=== PATIENT | male | born 1970 | race Caucasian/White ===

== ENCOUNTER 2017-03-19 16:19 | Emergency (ER) | payer OTHER ==
[2017-03-19 16:28] VITALS: BP 139/98; BMI 30.6
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
[2017-03-19] MEDS ORDERED: ADACEL TDaP IM ONE ×2 (17:01→17:03)
== END 2017-03-19 17:40 | disposition home or self-care (01) ==
LOC: ER 16:32
PROC: 09QK0ZZ Repair Nasal Mucosa and Soft Tissue, Open Approach (ICD-10-PCS; principal; 2017-03-19)
DX: S01.21XA Laceration without foreign body of nose, initial encounter (principal); S09.93XA Unspecified injury of face, initial encounter; W45.8XXA Other foreign body or object entering through skin, initial encounter; Y92.9 Unspecified place or not applicable
CPT/HCPCS: 12011; 90471; 99282

== ENCOUNTER 2017-04-05 17:55 | Emergency (ER) | payer OTHER ==
[2017-04-05 18:04] VITALS: BMI 31.4
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
[2017-04-05] MEDS ORDERED: NORFLEX INJ ONE (18:34)
[2017-04-05] MEDS ORDERED: TORADOL 60 MG VIAL ONE (18:34)
[2017-04-05] MEDS: TORADOL 60 MG VIAL IM ONE (18:39)
[2017-04-05] MEDS: NORFLEX INJ IM ONE (18:39)
--- NOTE | 2017-04-05 19:37 | CT ---
Indication: Fall and pain. Exam: CT scan lumbar spine Technique: Axial spiral images were obtained from the lower thoracic region through the sacrum withou t contrast and reconstructed in the sagittal and coronal planes. Findings: The lumbar vertebra are well aligned. There is moderate disc space narrowing throughout wit h prominent osteophytes throughout. No fracture or subluxation is seen. There are prominent osteophyt es throughout. There are moderate sclerotic changes of the facets throughout . There are moderate antonia tral disc bulges at L3-4, L4-5 , and L5-S1 . There are moderate hypertrophic changes of facets throug hout causing diffuse mild spinal stenosis. The paravertebral soft tissues are normal. Impression: Moderate degenerate disc changes throughout and moderate osteoarthritic changes of the facets through out with no acute abnormality seen Multiple moderate disc bulges throughout the lower lumbar spine. Reported By:
--- NOTE | 2017-04-05 19:39 | RAD ---
Left hip two views Indication: Pain after fall. Findings: There is no cortical lucency or malalignment. Joint spaces are normal. Impression: No acute left hip fracture. Reported By:
--- NOTE | 2017-04-05 19:42 | CT ---
CT pelvis without contrast Indication: Pain after fall Technique: Helical images through the pelvis without contrast. Coronal and sagittal reformats are pro vided. Findings: Limited images through lower lumbar spine shows facet arthropathy and disc degenerative manny nge. SI joint DJD is noted. Mild symphysis pubis DJD is seen. The hip joints are intact without corti gagan lucency or malalignment. No large effusion seen. Deep soft tissues of the pelvis show no acute abnormality. Few noninflamed sigmoid diverticula noted. Dystrophic calcifications seen in the rectus femorals muscle broad from prior tear. Ulnar injury of the sacrococcygeal junction suspected. Gas is seen in left gluteus ananda muscle belly, either from injection or laceration. No large laceration seen however. Impression: 1. No acute fracture. 2. Old injury of the sacrococcygeal junction. 3. Mild degenerative change. 4. Heterotopic calcification in the left rectus femoris muscle belly from old injury. 5. Gas in the left gluteus muscle belly. Correlate clinically for history of injection versus lacerat ion not visualized on CT due to field of view. Reported By:
[2017-04-05 20:10] VITALS: BP 140/91
== END 2017-04-05 20:07 | disposition home or self-care (01) ==
LOC: ER 18:10
DX: S39.012A Strain of muscle, fascia and tendon of lower back, initial encounter (principal); S73.102A Unspecified sprain of left hip, initial encounter; S33.5XXA Sprain of ligaments of lumbar spine, initial encounter; M25.551 Pain in right hip; W17.89XA Other fall from one level to another, initial encounter; Y92.69 Other specified industrial and construction area as the place of occurrence of the external cause
CPT/HCPCS: 72131; 72192; 73501; 96372; 99283; J1885; J2360

== ENCOUNTER → 2017-04-26 | Outpatient (CLI) | payer OTHER ==
[2017-04-05 20:10] VITALS: BP 140/91
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
== END | disposition home or self-care (01) | DRG 552 ==
LOC: RAD 10:22
PROVIDERS: ATTEND Obstetrics & Gynecology Obstetrics
DX: M54.16 Radiculopathy, lumbar region (principal); M47.896 Other spondylosis, lumbar region; M51.26 Other intervertebral disc displacement, lumbar region; M48.061 Spinal stenosis, lumbar region without neurogenic claudication
CPT/HCPCS: 72148

== ENCOUNTER → 2017-05-12 | Outpatient (CLI) | payer OTHER ==
[2017-05-12 10:54] LABS: BASOPHILS # (AUTO) 0.1 X10^3/uL (0.0-0.1); BASOPHILS % (AUTO) 1.3 % (0.2-1.0); EOSINOPHILS # (AUTO) 0.2 x10^3/uL (0.0-0.2); EOSINOPHILS % (AUTO) 3.1 % (0.9-2.9); HEMATOCRIT 51.7 % (42.0-54.0); HEMOGLOBIN 18.1 g/dL (13.5-18.0); LYMPHOCYTES # (AUTO) 0.7 X10^3/uL (1.3-2.9); LYMPHOCYTES % (AUTO) 13.3 % (21.0-51.0); MEAN CORPUSCULAR HEMOGLOBIN 30.8 pg (27.0-34.0); MEAN CORPUSCULAR HGB CONC 35.1 g/dL (33.0-35.0); MEAN CORPUSCULAR VOLUME 87.7 fL (80.0-100.0); MEAN PLATELET VOLUME 8.1 fL (7.4-11.0); MONOCYTES # (AUTO) 0.6 x10^3/uL (0.3-0.8); MONOCYTES % (AUTO) 10.4 % (0.0-13.0); NEUTROPHILS % (AUTO) 71.9 % (42.0-75.0); PLATELET COUNT 228 X10^3/uL (150.0-450.0); RED BLOOD COUNT 5.89 X10^6/uL (4.7-6.0); RED CELL DISTRIBUTION WIDTH 14.2 % (11.6-16.5); WHITE BLOOD COUNT 5.6 X10^3/uL (3.6-10.0)
[2017-05-12 11:24] LABS: BLOOD UREA NITROGEN 18 mg/dL (7-18); CARBON DIOXIDE 24.3 mmol/L (21-32); CHLORIDE 104 mmol/L (98-107); COR NA(FOR HYPERGLY) 140 mmol/L (136-145); SODIUM 139 mmol/L (136-145); eGFR BLACK RACES > 60 (>60); eGFR NON BLACK RACES > 60 (>60)
== END ==
LOC: LAB 10:38
PROVIDERS: ATTEND Neurological Surgery
DX: Z01.818 Encounter for other preprocedural examination (principal); M51.26 Other intervertebral disc displacement, lumbar region
CPT/HCPCS: 36415; 80048; 85025; 85610; 85730

== ENCOUNTER 2017-09-04 10:39 | Emergency (ER) | payer OTHER ==
[2017-09-04 10:54] VITALS: BMI 30.8
[2017-09-04] MEDS ORDERED: NS 1000 ML 1,000 ML IV SCH (12:00)
[2017-09-04] MEDS ORDERED: NS 1000 ML 1,000 ML ONE (12:01)
--- NOTE | 2017-09-04 12:03 | DR.GENAD ---
HPI - PCP Primary Care Physician: Dr. Dewey - Complaint/Symptoms Chief Complaint Doctors Comments: Patient is complaining of feeling weak with his muscles feeling sore like they are going to melt away for the past 2-3 days getting worst today. States he has been walking three miles daily for a few weeks since having back surgery 13 May 2017 but today he do not feel like picking his feet up. States he has had a similar episode few years ago and they told him his cardio- level was elevated to 1400 and should be around 300. States they gave him fluids and kept him for about 4 days. He denies chest pain , SOB, cold or cough. He denies any recent trauma. Chief Complaint:: Pt states "I've been feeling sort of funny for a few days but this morning I was walking this morning started feeling dizzy and seeing spots. Feels like I'm very weak and anxious." Stated forearms, calve muscles and feet are very sore. - Nurses notes reviewed Nurses Notes Review: Yes - Source History Provided: Patient - Mode of Arrival Mode of Arrival: Ambulatory - Timing Onset of Chief Complaint: 09/04/17 Came on: Gradually - Duration Duration: Constant How lon Duration: Days - Location Location: arms, legs and feet - Severity Severity: Moderate - Modifying Factors Worsens:: exertion Improves:: nothing PMH - PMH Past Medical History: Yes Past Medical History Comment: Rheumatoid Arthritis Past Surgical History: Yes Surgical History: Ortho Surgery Past Surgical History Comment: Back surgery, Right Wrist surgery - Family History History of Family Medical Conditions: Yes Family Medical History: Diabetes Mellitus, Cancer, Coronary Artery Disease, Heart Failure, Hypertension - Social History Does patient currently use any type of tobacco product: No Have you used tobacco products in the last 12 months: No Type of Tobacco Use: None Does any household member use tobacco: No Alcohol Use: None Do you use any recreational Drugs:: No Lives With: Family Lives Where: Home - infectious screening In the last 2 months have you had wt loss of >10#?: NO Have you had fever, night sweats or hemotysis?: No Have you traveled outside the country in the last 6 months?: No Isolation: Standard ROS - Review of Systems Constitutional: No Symptoms Reported, Malaise, Weakness, Fatigue. negative: See HPI, Chills, Diaphoresis, Fever, Irritable, Loss of Appetite, Other Eyes: No Symptoms Reported ENTM: No Symptoms Reported. negative: See HPI, Ear Pain, Ear Discharge, Pulling on Ears, Hearing Loss, Nose Pain, Nose Discharge, Epistaxis, Nose Congestion, Mouth Pain, Mouth Swelling, Loose Teeth, Drooling, Throat Pain, Throat Swelling, Ear Foreign Body Respiratoy: No Symptoms Reported. negative: See HPI, Productive Cough, Non- Productive Cough, Moist Cough, Dry Cough, Hacking Cough, Barking Cough, Brassy Cough, Orthopnea, Short of Breath, Stridor, Wheezing, Hemoptysis, Other Cardiovascular: No Symptoms Reported. negative: See HPI, Chest Pain, Edema, Palpitations, Syncope, Cyanosis, Skin Mottling, Other Gastrointestinal/Abdominal: No Symptoms Reported. negative: See HPI, Abdominal Pain, Constipation, Diarrhea, Nausea, Vomiting, Food Intolerance, Other Genitourinary: No Symptoms Reported. negative: See HPI, Discharge, Dysuria, Frequency, Hematuria, Pain, Bleeding, Other Neurological: No Symptoms Reported, Emotional Problems, Weakness, Problems Walking. negative: See HPI, Anxiety, Depressed, Headache, Numbness, Paresthesia , Pre-existing Deficit, Seizure, Tingling, Tremors, Dizziness, Speech Problem, Other Musculoskeletal: No Symptoms Reported, Arm, Leg, Foot (muscle weakness) Integumentary: No Symptoms Reported. negative: See HPI, Change in Color, Change in Hair/Nails, Dryness, Lesions, Lumps, Rash, Itching, Wound, Bruises, Juandice, Other Hematologic/Lymphatic: No Symptoms Reported Endocrine: No Symptoms Reported. negative: See HPI, Excessive Sweating, Flushing, Intolerance to Cold, Intolerance to Heat, Increased Hunger, Increased Thirst, Increased Urine, Unexplained Weight Gain, Unexplained Weight Loss, Failure to Thrive, Decreased Appetite, Other Psychiatric: No Symptoms Reported. negative: See HPI, Anxiety, Depression, Hallucinations, Excessive crying, Suicidal, Other PE - Vital Signs Vitals: Temperature 98.2 F Pulse Rate [Standing] 105 Pulse Rate [Sitting] 74 Pulse Rate [Lying] 74 Pulse Rate 96 Respiratory Rate 18 Blood Pressure [Left Arm] 140/91 Blood Pressure [Right Arm] 119/67 Blood Pressure [Standing] 133/94 Blood Pressure [Sitting] 158/108 Blood Pressure [Lying] 154/89 Blood Pressure 130/79 O2 Sat by Pulse Oximetry 98 - General Limitations: No Limitations General Appearance: Alert, In No Apparent Distress - Head Head Exam: Normal Inspection, Atraumatic, Normocephalic - Eyes Eye exam: Normal Appearance, PERRL, EOMI. negative: Scleral Icterus, Conjunctival Injection, Nystagmus, Miosis, Mydrasis, Periorbital Swelling, Periorbital Tenderness, Other - ENT ENT Exam: Normal Exam, Normal Oropharynx, Normal External Ear Exam, Mucous Membranes Moist, TM's Normal Bilaterally External Ear Exam: Normal External Inspection TM/Canal Exam: Bilateral Normal Nose Exam: Normal Nose Exam Mouth Exam: Normal Inspection Throat Exam: Normal Inspection. negative: Tonsillar Erythema, Tonsillomegaly, Tonsillar Exudate, R Peritonsillar Mass, L Peritonsillar Mass, Muffled Voice, Other - Neck Neck Exam: Normal Inspection, Full ROM, Trachea Midline. negative: Tenderness, Meningismus, Lymphadenopathy, Thyromegaly, Other - Chest Chest Inspection: Normal Inspection, Symmetric Chest Wall Rise. negative: Tenderness, Rash, Abscess, Other - Respiratory Respiratory Exam: Normal Lung Sounds Bilat. negative: Accessory Muscle Use, Chest Wall Tenderness, Prolonged Expiratory Phase, Respiratory Distress, Stridor , Other Respiratory Exam: Bilateral Clear to Auscultation - Cardiovascular Cardiovascular Exam: Regular Rate, Normal Rhythm, Normal Heart Sounds, Systolic Murmur - Abdominal Exam Abdominal Exam: Normal Inspection, Normal Bowel Sounds, Soft. negative: Distention, Tenderness, Guarding, Rebound, Rigidity, Dimnished Bowel Sounds, Hyperactive Bowel Sounds, Hypoactive Bowel Sounds, Organomegaly, Trauma, Incision, Ascites, Mass, Bruit, Pulsatile Mass, Hernia, Other Abdominal Tenderness: negative: RUQ, RLQ, LUQ, LLQ, Epigastrium, Suprapubic, Diffuse, Mild, Moderate, Severe, Other - Extremities Extremities Exam: Normal Inspection, Full ROM, Normal Capillary Refill. negative: Tenderness, Edema, Joint Swelling, Calf Tenderness, Other - Back Back Exam: Normal Inspection, Full ROM - Neurologic Neurological Exam: Alert, Oriented X3, CN II-XII Intact, Reflexes Normal. negative: Normal Gait (gait not tested) - Psychiatric Psychiatric Exam: Normal Affect, Normal Mood, Anxious. negative: Depressed, Agitated, Flat Affect, Manic, Homicidal Ideation, Suicidal Ideation, Other - Skin Skin Exam: Warm, Dry, Intact, Normal Color. negative: Rash, Cyanosis, Diaphoresis, Erythema, Pallor, Mottled, Other ROR - Labs Reviewed Laboratory Results Reviewed?: Yes (All labs and x-ray results reviewed and discussed with patient) Result Diagrams: 09/04/17 12:07 09/04/17 12:07 Laboratory: WBC 5.1 X10^3/uL (3.6-10.0) 09/04/17 12:07 RBC 5.14 X10^6/uL (4.7-6.0) 09/04/17 12:07 Hgb 15.8 g/dL (13.5-18.0) 09/04/17 12:07 Hct 44.7 % (42.0-54.0) 09/04/17 12:07 MCV 86.8 fL (80.0-100.0) 09/04/17 12:07 MCH 30.7 pg (27.0-34.0) 09/04/17 12:07 MCHC 35.4 g/dL (33.0-35.0) H 09/04/17 12:07 RDW 14.5 % (11.6-16.5) 09/04/17 12:07 Plt Count 203 X10^3/uL (150.0-450.0) 09/04/17 12:07 MPV 8.2 fL (7.4-11.0) 09/04/17 12:07 Neut % (Auto) 72.1 % (42.0-75.0) 09/04/17 12:07 Lymph % (Auto) 13.0 % (21.0-51.0) L 09/04/17 12:07 [place] % (Auto) 11.2 % (0.0-13.0) 09/04/17 12:07 Eos % (Auto) 2.7 % (0.9-2.9) 09/04/17 12:07 Baso % (Auto) 1.0 % (0.2-1.0) 09/04/17 12:07 Neut # (Auto) 3.7 x10^3/uL (2.2-4.8) 09/04/17 12:07 Lymph # (Auto) 0.7 X10^3/uL (1.3-2.9) L 09/04/17 12:07 [place] # (Auto) 0.6 x10^3/uL (0.3-0.8) 09/04/17 12:07 Eos # (Auto) 0.1 x10^3/uL (0.0-0.2) 09/04/17 12:07 Baso # (Auto) 0.1 X10^3/uL (0.0-0.1) 09/04/17 12:07 Absolute Nucleated RBC 0.0 /100WBC 09/04/17 12:07 INR Target Range - 09/04/17 12:07 INR 1.05 (0.8-1.3) 09/04/17 12:07 APTT 25.2 SECONDS (22.9-36.5) 09/04/17 12:07 PTT Comment - 09/04/17 12:07 Sodium 141 mmol/L (136-145) 09/04/17 12:07 Corrected Sodium 142 mmol/L (136-145) 09/04/17 12:07 Potassium 3.8 mmol/L (3.5-5.1) 09/04/17 12:07 Chloride 107 mmol/L (98-107) 09/04/17 12:07 Carbon Dioxide 25.3 mmol/L (21-32) 09/04/17 12:07 BUN 19 mg/dL (7-18) H 09/04/17 12:07 Creatinine 1.28 mg/dL (0.70-1.30) 09/04/17 12:07 Est GFR (MDRD) Af Amer > 60 (>60) 09/04/17 12:07 Est GFR (MDRD) Non-Af > 60 (>60) 09/04/17 12:07 Glucose 130 mg/dL (65-99) H 09/04/17 12:07 Calcium 8.5 mg/dL (8.5-10.1) 09/04/17 12:07 Corrected Calcium TNP 09/04/17 12:07 Magnesium 2.1 mg/dL (1.7-2.9) 09/04/17 12:07 Total Bilirubin 0.60 mg/dL (0.2-1.0) 09/04/17 12:07 AST 26 Units/L (15-37) 09/04/17 12:07 ALT 42 Units/L (12-78) 09/04/17 12:07 Alkaline Phosphatase 90 Units/L (46-116) 09/04/17 12:07 Creatine Kinase 221 Units/L (39-308) 09/04/17 12:07 CK-MB (CK-2) < 1.0 ng/mL (0-4.0) 09/04/17 12:07 CK/CKMB % Calc 0.5 % (<4) 09/04/17 12:07 Troponin I < 0.02 ng/mL (0-1.5) 09/04/17 12:07 Total Protein 7.3 g/dL (6.4-8.2) 09/04/17 12:07 Albumin 3.8 g/dL (3.4-5.0) 09/04/17 12:07 Globulin 3.5 g/dL (2.5-4.5) 09/04/17 12:07 Albumin/Globulin Ratio 1.1 Ratio (1.1-2.1) 09/04/17 12:07 - XRAY XRAY Interpreted by: Radiologist (CXR: No acute findings or changes noted) - EKG Rate: 62 [place]: Normal Rhythm: NSR Block: None Hypertrophy: None ST: Normal, Nonsp - Diagnosis Discharge Problem: Dehydration, moderate, Hyperglycemia, Borderline hypertension - Discharge Plan Disposition: 01 HOME, SELF-CARE Condition: Stable - Follow ups/Referrals Follow ups/Referrals: KIRIT DEWEY [Primary Care Provider] - 3 days - Instructions Instructions: Hyperglycemia, [id number], Preventing Hypertension, Dehydration , Adult
--- NOTE | 2017-09-04 12:07 | RAD ---
Examination: AP chest History: Chest pain Comparison 10/13/2014 Findings: Continued normal transverse heart diameter with clear lungs and pleural spaces. Impression: No change; no acute findings. Reported By:
[2017-09-04 12:20] LABS: BASOPHILS # (AUTO) 0.1 X10^3/uL (0.0-0.1); EOSINOPHILS # (AUTO) 0.1 x10^3/uL (0.0-0.2); EOSINOPHILS % (AUTO) 2.7 % (0.9-2.9); HEMATOCRIT 44.7 % (42.0-54.0); HEMOGLOBIN 15.8 g/dL (13.5-18.0); LYMPHOCYTES # (AUTO) 0.7 X10^3/uL (1.3-2.9); MEAN CORPUSCULAR HEMOGLOBIN 30.7 pg (27.0-34.0); MEAN CORPUSCULAR HGB CONC 35.4 g/dL (33.0-35.0); MEAN CORPUSCULAR VOLUME 86.8 fL (80.0-100.0); MEAN PLATELET VOLUME 8.2 fL (7.4-11.0); MONOCYTES # (AUTO) 0.6 x10^3/uL (0.3-0.8); MONOCYTES % (AUTO) 11.2 % (0.0-13.0); NEUTROPHILS # (AUTO) 3.7 x10^3/uL (2.2-4.8); NEUTROPHILS % (AUTO) 72.1 % (42.0-75.0); PLATELET COUNT 203 X10^3/uL (150.0-450.0); RED BLOOD COUNT 5.14 X10^6/uL (4.7-6.0); RED CELL DISTRIBUTION WIDTH 14.5 % (11.6-16.5); WHITE BLOOD COUNT 5.1 X10^3/uL (3.6-10.0)
[2017-09-04 13:00] LABS: BLOOD UREA NITROGEN 19 mg/dL (7-18); CALCIUM 8.5 mg/dL (8.5-10.1); CARBON DIOXIDE 25.3 mmol/L (21-32); CHLORIDE 107 mmol/L (98-107); COR NA(FOR HYPERGLY) 142 mmol/L (136-145); CREATININE 1.28 mg/dL (0.70-1.30); SODIUM 141 mmol/L (136-145); TROPONIN I < 0.02 ng/mL (0-1.5); eGFR BLACK RACES > 60 (>60); eGFR NON BLACK RACES > 60 (>60)
[2017-09-04 13:05] LABS: ALANINE AMINOTRANSFERASE 42 Units/L (12-78); ALBUMIN 3.8 g/dL (3.4-5.0); ALKALINE PHOSPHATASE 90 Units/L (46-116); ASPARTATE AMINO TRANSFERASE 26 Units/L (15-37); CKMB % 0.5 % (<4); CREATINE KINASE 221 Units/L (39-308); CREATINE KINASE MB < 1.0 ng/mL (0-4.0); MAGNESIUM 2.1 mg/dL (1.7-2.9); TOTAL PROTEIN 7.3 g/dL (6.4-8.2)
[2017-09-04 13:50] VITALS: BP 130/82
== END 2017-09-04 14:19 | disposition home or self-care (01) ==
LOC: ER 10:50
DX: E86.0 Dehydration (principal); R73.9 Hyperglycemia, unspecified
CPT/HCPCS: 36415; 71045; 80053; 82550; 82553; 83735; 84484; 85025; 85610; 85730; 93005; 93010; 96365; 99282; 99283; A4222

== ENCOUNTER 2017-09-13 17:19 | Emergency (ER) | payer OTHER ==
[2017-09-13 17:24] VITALS: BMI 30.2
[2017-09-13 18:57] LABS: BILIRUBIN,URINE NEGATIVE (NEGATIVE); BLOOD/HEMOGLOBIN,URINE 4+ (NEGATIVE); GLUCOSE, URINE NEGATIVE (NEGATIVE); KETONES,URINE 1+ (NEGATIVE); LEUKOCYTE ESTERASE ,URINE 1+ (NEGATIVE); NITRITES,URINE NEGATIVE (NEGATIVE); PROTEIN,URINE 2+ (NEGATIVE); UROBILINOGEN,URINE 2+ (NORMAL)
[2017-09-13] MEDS ORDERED: NS 1000 ML 1,000 ML ONE (19:00)
[2017-09-13] MEDS ORDERED: NS 1000 ML 1,000 ML IV ONE (19:09)
--- NOTE | 2017-09-13 19:11 | CT ---
HISTORY: Left flank pain Study: CT abdomen and pelvis without contrast Comparison: None Technique: Multiple axial images of the abdomen and pelvis were obtained without IV contrast. Dose reduction t echniques including Automated Exposure Control (AEC) and adjustment of mA and kV were utilized. Findings: Please note evaluation is limited without use of IV contrast. There is a 7 mm right middle lobe pulmonary nodule. The lung bases are otherwise clear. The unenhanc ed spleen, liver, pancreas, and adrenal glands are unremarkable. There is a punctate density seen kimberly r the gallbladder neck, possibly a stone or artifact. There is a 1.7 cm right renal cyst with periphe ral calcification that could represent a wall calcification versus layering milk of calcium. No renal calculi identified but there is prominence of the left ureter and mild distal periureteral stranding . No definite stones are identified the findings could reflect a recently passed stone. No free intraperitoneal air. No evidence of intestinal obstruction or inflammation. The appendix is n ormal. No free fluid is seen. The soft tissues and osseous structures are unremarkable. Limited evaluation of vascular structures d ue to lack of contrast. No pathologically enlarged lymph nodes are identified. The urinary bladder is not well distended. IMPRESSION: 1. Mild prominence of the left ureter with distal periureteral stranding. No definite stones are seen within the ureter or urinary bladder. Correlate clinically for possible recently passed stone. 2. Right renal cyst as described, possibly a complex cyst with calcified wall versus layering milk of calcium. Nonemergent renal protocol CT with and without contrast could be performed for additional e valuation clinically indicated. Reported By:
[2017-09-13 19:19] LABS: APPEARANCE,URINE SLIGHTLY HAZY (CLEAR); COLOR,URINE AMBER (YELLOW)
[2017-09-13 19:20] LABS: AMORPHOUS SEDIMENT,UR 1+ /HPF (NEGATIVE); BACTERIA,URINE TRACE /HPF (NEGATIVE); CYSTINE CRYSTALS,URINE MODERATE /HPF (NEGATIVE); MUCUS,URINE MANY /HPF (NEGATIVE); SQUAMOUS EPITHELIAL CELL,UR FEW /HPF (NEGATIVE)
--- NOTE | 2017-09-13 19:50 | DR.UPM ---
HPI - Time Seen Time seen: 17:35 - PCP Primary Care Physician: DEWEY - Complaint Chief Complaint Doctors Comments: Patient presents with complaint of urinary urgency for one day. He reports a history of renal stones. Today he admits to voiding just a little. Chief Complaint:: PT. C/O URINARY RETENTION SINCE LAST NIGHT. PT. ALSO C/O LEFT FLANK PAIN. PT. WENT TO DR. [employer] AND WAS ABLE TO VOID A LITTLE AND THEY TOLD HIM HE HAD BLOOD IN HIS URINE AND GAVE HIM A TORADOL SHOT. - Source History Provided: Patient - Mode of Arrival Mode of Arrival: Ambulatory - Timing Onset of Chief Complaint: 09/12/17 PMH - PMH Past Medical History: Yes Past Medical History: Kidney Stones Past Surgical History: Yes Surgical History: Ortho Surgery - Family History History of Family Medical Conditions: Yes Family Medical History: Diabetes Mellitus, Cancer, Coronary Artery Disease, Heart Failure, Hypertension - Social History Does patient currently use any type of tobacco product: No Have you used tobacco products in the last 12 months: No Type of Tobacco Use: None Does any household member use tobacco: No Alcohol Use: None Do you use any recreational Drugs:: No Lives With: Family Lives Where: Home - infectious screening In the last 2 months have you had wt loss of >10#?: NO Have you had fever, night sweats or hemotysis?: No Have you traveled outside the country in the last 6 months?: No Isolation: Standard ROS - Review of Systems Eyes: No Symptoms Reported ENTM: No Symptoms Reported Respiratoy: No Symptoms Reported Cardiovascular: No Symptoms Reported Gastrointestinal/Abdominal: No Symptoms Reported Genitourinary: No Symptoms Reported Neurological: No Symptoms Reported Musculoskeletal: No Symptoms Reported Integumentary: No Symptoms Reported Hematologic/Lymphatic: No Symptoms Reported Endocrine: No Symptoms Reported Psychiatric: No Symptoms Reported All Other Systems: Reviewed and Negative PE - Vital Signs Vitals: Temperature 98.3 F Pulse Rate 83 Respiratory Rate 17 Blood Pressure [Left Arm] 140/91 Blood Pressure [Right Arm] 130/82 Blood Pressure [Standing] 133/94 Blood Pressure [Sitting] 158/108 Blood Pressure [Lying] 154/89 Blood Pressure 134/85 O2 Sat by Pulse Oximetry 99 - General Limitations: No Limitations General Appearance: Alert, In No Apparent Distress - Head Head Exam: Normal Inspection, Atraumatic - Eyes Eye exam: Normal Appearance, PERRL, EOMI - ENT ENT Exam: Normal Exam - Neck Neck Exam: Normal Inspection, Full ROM - Chest Chest Inspection: Normal Inspection - Respiratory Respiratory Exam: Normal Lung Sounds Bilat Respiratory Exam: Bilateral Clear to Auscultation - Cardiovascular Cardiovascular Exam: Regular Rate, Normal Rhythm - Abdominal Exam Abdominal Exam: Normal Inspection, Normal Bowel Sounds Abdominal Tenderness: negative: RUQ, RLQ, LUQ, LLQ, Epigastrium, Suprapubic, Diffuse, Mild, Moderate, Severe, Other - Rectal Rectal Exam: Deferred - Genitourinary Exam: Male: Deferred Scrotal Exam: Normal: Bilateral - Extremities Extremities Exam: Normal Inspection - Back Back Exam: Normal Inspection, Full ROM - Neurologic Neurological Exam: Alert, Oriented X3, CN II-XII Intact - Psychiatric Psychiatric Exam: Normal Affect, Normal Mood - Skin Skin Exam: Warm, Dry, Intact Course - Reevaluation 1st: Improved ROR - Labs Reviewed Laboratory Results Reviewed?: Yes Laboratory: Specimen Type Clean catch urine 09/13/17 18:39 Urine Color Sherita (YELLOW) 09/13/17 18:39 Urine Appearance Slightly hazy (CLEAR) 09/13/17 18:39 Urine pH 6.0 (5.0 - 8.0) 09/13/17 18:39 Ur Specific [place] 1.020 (1.000-1.030) 09/13/17 18:39 Urine Protein 2+ (NEGATIVE) 09/13/17 18:39 Urine Glucose (UA) Negative (NEGATIVE) 09/13/17 18:39 Urine Ketones 1+ (NEGATIVE) 09/13/17 18:39 Urine Occult Blood 4+ (NEGATIVE) 09/13/17 18:39 Urine Nitrite Negative (NEGATIVE) 09/13/17 18:39 Urine Bilirubin Negative (NEGATIVE) 09/13/17 18:39 Urine Urobilinogen 2+ (NORMAL) 09/13/17 18:39 Ur Leukocyte Esterase 1+ (NEGATIVE) 09/13/17 18:39 Urine RBC 10-20 /HPF (NONE SEEN) 09/13/17 18:39 Urine WBC 3-5 /HPF (NONE SEEN) 09/13/17 18:39 Ur Squamous Epith Cells Few /HPF (NEGATIVE) 09/13/17 18:39 Cystine Crystals Moderate /HPF (NEGATIVE) 09/13/17 18:39 Amorphous Sediment 1+ /HPF (NEGATIVE) 09/13/17 18:39 Urine Bacteria Trace /HPF (NEGATIVE) 09/13/17 18:39 Urine Mucus Many /HPF (NEGATIVE) 09/13/17 18:39 Ur Culture Indicated? No/not indicated 09/13/17 18:39 - XRAY XRAY Interpreted by: Radiologist (Ct abdomen and pelvis w/o: Mild prominence of the left ureter with distal periureteral stranding. No definite stones are seen within the ureter or urinary bladder. Correlate clinically for possible recently passed stone. Right renal cyst 1.7cm, possible a complex cyst with calcified wall versus layering milk of calcium. There a 7mm right middle lobe pulmonary nodule. Nonemergent renal protocol CT with and without contrast could be performed for additional evaluation clinicallly indicated.) - Diagnosis Discharge Problem: Pulmonary nodule, left, Renal cyst, right, Prominence of Left ureter/distal strandi - Discharge Plan Condition: Stable - Follow ups/Referrals Follow ups/Referrals: KIRIT DEWEY [Primary Care Provider] - 3 days - Instructions
[2017-09-13 19:59] VITALS: BP 128/78
== END 2017-09-13 20:00 | disposition home or self-care (01) ==
LOC: ER 17:29
DX: R91.1 Solitary pulmonary nodule (principal); N28.1 Cyst of kidney, acquired; N28.89 Other specified disorders of kidney and ureter
CPT/HCPCS: 74176; 81001; 96365; 99282; 99283; 99284; A4222